=== PATIENT | male | born 1990 | race Caucasian/White ===

== ENCOUNTER 2022-03-31 19:26 | Emergency (ER) | payer BC ==
[2022-03-31 20:28] LABS: HEMOGLOBIN 14.4 gm/dl (14.0-17.5); RED BLOOD COUNT 4.94 M/UL (4.20-5.50); WHITE BLOOD COUNT 8.6 K/UL (4.5-11.0)
[2022-03-31 20:46] LABS: BUN/CREATININE RATIO 12 (0-10)
== END 2022-03-31 21:33 | disposition home or self-care (01) ==
LOC: ER1 19:26
PROVIDERS: Physician Assistant Medical
DX: G40.909 Epilepsy, unspecified, not intractable, without status epilepticus (principal)
CPT/HCPCS: 80053; 80175; 81001; 85025; 99284